=== PATIENT | male | born 1980 | race Two or more races ===

== ENCOUNTER 2016-10-26 21:07 | Emergency (ER) | payer SELFPAY ==
[2016-10-26] MEDS ORDERED: LIDOCAINE 2% VISCOUS SOLN 20 ML UDCUP PO ONE (22:09)
[2016-10-26] MEDS ORDERED: METOCLOPRAMIDE HCL ORAL SOLN 10 MG/10 ML UDCUP PO ONE (22:09)
[2016-10-26] MEDS ORDERED: MAG HYDROX/AL HYDROX/SIMETH SUSP 30 ML UDCUP PO ONE (22:09)
--- NOTE | 2016-10-26 22:13 | ER Document Report ---
ED GI/ - General Chief Complaint: Abdominal Pain Stated Complaint: SHORTNESS OF BREATH Time Seen by Provider: 10/26/16 22:02 Notes: The patient is a 36-year-old male, past medical history anxiety, hypertension, GERD, presents from home after he is feeling epigastric pain and belching episodes that is causing him to feel short of breath and like his tongue is tingling. He had an EGD performed by Dr. Owen about 4 months ago, which showed mild gastritis. He is currently taking omeprazole. Patient denies chest pain at rest, shortness of breath at rest, numbness, tingling, nausea, vomiting, diarrhea, constipation, back pain or urinary symptoms. TRAVEL OUTSIDE OF THE [place] IN LAST 30 DAYS: No - Related Data Allergies/Adverse Reactions: No Known Allergies Allergy (Verified 10/26/16 21:13) Home Medications: Current Home Medications Amlodipine Besylate/Benazepril [Amlodipine-Benazepril 10-40 mg] 1 cap PO DAILY 10/26/16 [History] Metoprolol Tartrate [Lopressor] 50 mg PO BID 10/26/16 [History] Omeprazole 20 mg PO BID 10/26/16 [History] Past Medical History - General Information source: Patient - Social History Smoking Status: Never Smoker Chew tobacco use (# tins/day): No Frequency of alcohol use: Occasional Drug Abuse: None Family History: Reviewed & Not Pertinent Patient has suicidal ideation: No Patient has homicidal ideation: No - Past Medical History Cardiac Medical History: Reports: Hx Hypertension Renal/ Medical History: Denies: Hx Peritoneal Dialysis GI Medical History: Reports: Hx Gastroesophageal Reflux Disease Psychiatric Medical History: Reports: Hx Anxiety Past Surgical History: Reports: Hx Cholecystectomy - Immunizations Hx Diphtheria, Pertussis, Tetanus Vaccination: No Review of Systems - Review of Systems Notes: REVIEW OF SYSTEMS: CONSTITUTIONAL: -fevers, -chills EENT: -eye pain, -difficulty swallowing, -nasal congestion CARDIOVASCULAR:-chest pain, -syncope. RESPIRATORY: -cough, +SOB GASTROINTESTINAL: +epigastric abdominal pain, - nausea, -vomiting, -diarrhea GENITOURINARY: -dysuria, -hematuria MUSCULOSKELETAL: -back pain, -neck pain SKIN: -rash or skin lesions. HEMATOLOGIC: -easy bruising or bleeding. LYMPHATIC: -swollen, enlarged glands. NEUROLOGICAL: -altered mental status or loss of consciousness, -headache, - neurologic symptoms PSYCHIATRIC: -anxiety, -depression. ALL OTHER SYSTEMS REVIEWED AND NEGATIVE. Physical Exam - Vital signs Vitals: Temp Pulse Resp BP Pulse Ox 98 F 73 20 172/105 H 98 10/26/16 21:13 10/26/16 21:13 10/26/16 21:13 10/26/16 21:13 10/26/16 21:13 - Notes Notes: PHYSICAL EXAMINATION: GENERAL: Well-appearing, well-nourished and in no acute distress. Appears anxious. HEAD: Atraumatic, normocephalic. EYES: Pupils equal round and reactive to light, extraocular movements intact, sclera anicteric, conjunctiva are normal. ENT: no tongue swelling, nares patent, oropharynx clear without exudates. Moist mucous membranes. NECK: Normal range of motion, supple without lymphadenopathy LUNGS: Breath sounds clear to auscultation bilaterally and equal. No wheezes rales or rhonchi. HEART: Regular rate and rhythm without murmurs ABDOMEN: Soft, mild epigastric tenderness, normoactive bowel sounds. No guarding, no rebound. No masses appreciated. EXTREMITIES: Normal range of motion, no pitting or edema. No cyanosis. NEUROLOGICAL: Cranial nerves grossly intact. Normal speech, normal gait. Normal sensory and motor exams. PSYCH: Anxious affect. SKIN: Warm, Dry, normal turgor, no rashes or lesions noted. Course - Re-evaluation Re-evalutation: Patient appears anxious, but well. His chest x-ray does not show any free air or any other acute findings. His abdominal pain is ongoing for several months and he is following with the GI doctor. He has had an EGD that shows some gastritis symptoms. After GI cocktail, patient is completely asymptomatic. Instructed him to have his blood pressure rechecked by his primary care physician to see if any of his blood pressure medications need to be adjusted. Given return precautions and he understands. Patient presents with multiple vague complaints that did not appear to be concerning for any acute life-threatening pathology. Vitals are within normal limits at triage and at time of discharge. Physical examination is unremarkable. Patient has tolerated oral intake without difficulty. Patient was not noted to be in distress at any point during their ER visit. At this time, based on the reassuring evaluation, I do not suspect an acute ND, pulmonary embolus, aortic dissection, acute intra-abdominal pathology, stroke, or sepsis. Will discharge with return precautions and follow-up recommendations. Verbal discharge instructions given a the bedside and opportunity for questions given. Medication warnings reviewed. Patient is in agreement with this plan and has verbalized understanding of return precautions and the need for primary care follow-up in the next 24-72 hours. - Vital Signs Vital signs: Temp Pulse Resp BP Pulse Ox 98.0 F 73 17 172/109 H 98 10/26/16 21:15 10/26/16 21:15 10/26/16 21:53 10/26/16 21:15 10/26/16 21:15 - Diagnostic Test Radiology reviewed: Image reviewed, Reports reviewed Radiology results interpreted by me: CXR: NAD Discharge - Discharge Clinical Impression: Chronic epigastric pain, Shortness of breath Condition: Stable Disposition: HOME, SELF-CARE Additional Instructions: Continue your omeprazole and begin Gas-X to help with your symptoms. Follow-up with your primary care physician to have your blood pressure rechecked and GI doctor to have your abdominal pain rechecked. SHORTNESS OF BREATH OR DYSPNEA: You were evaluated for shortness of breath, or dyspnea. Dyspnea has many causes, and some are more serious than others. Sometimes it's impossible to diagnose the cause of dyspnea with the tests that are available on an emergency basis. Based on our evaluation today, you do not need hospitalization now. We found no evidence of pneumonia, collapsed lung, blood clots in the lung, tumors , or heart failure. Causes of non-specific dyspnea can include asthma or bronchospasm, hyperventilation, emotional distress, heart disease, emphysema, fibrosis of the lung, and stiffness of the chest wall. In healthy individuals with a single episode, it's sometimes reasonable to do nothing but wait to see if the problem occurs again. Additional tests used to evaluate dyspnea can include cardiac stress testing, echocardiography, pulmonary function testing, CAT scan of the chest, bronchoscopy or pulmonary biopsy. Return if shortness of breath persists or worsens, or if you develop chest pain, fever, cough, confusion, or fainting. NORMAL EXAM AND WORKUP: At this time, your examination and workup show no significant abnormality. No significant abnormal physical findings were noted. All laboratory, EKG, and imaging (x-ray, CT scans, ultrasound) studies that were ordered show no significant abnormality. Although your examination and all studies that were ordered showed no significant abnormal finding, there are no examinations and no studies that are 100% accurate. There is always the possibility that some abnormality could exist and not be detected with physical examination or within the limits and capabilities of laboratory and other studies. You should return or follow up as you were instructed on your visit today for further evaluation if your symptoms do not resolve. FOLLOW-UP CARE: If you have been referred to a physician for follow-up care, call the physician s office for an appointment as you were instructed or within the next two days. If you experience worsening or a significant change in your symptoms, notify the physician immediately or return to the Emergency Department at any time for re-evaluation. Forms: Elevated Blood Pressure Referrals: MICHELLE OWEN MD [ACTIVE STAFF] - Follow up as needed
--- NOTE | 2016-10-26 22:36 | RADIOLOGY REPORT (SQ) ---
EXAM DESCRIPTION: CHEST PA/LAT COMPLETED DATE/TIME: 10/26/2016 10:22 pm REASON FOR STUDY: SOB COMPARISON: 05/08/2014 EXAM PARAMETERS: NUMBER OF VIEWS: two views TECHNIQUE: Digital Frontal and Lateral radiographic views of the chest acquired. RADIATION DOSE: NA LIMITATIONS: none FINDINGS: LUNGS AND PLEURA: No opacities, masses or pneumothorax. No pleural effusion. MEDIASTINUM AND HILAR STRUCTURES: No masses or contour abnormalities. HEART AND VASCULAR STRUCTURES: Heart normal size. No evidence for failure. BONES: No acute findings. HARDWARE: None in the chest. OTHER: No other significant finding. IMPRESSION: No acute findings. TECHNICAL DOCUMENTATION: JOB ID: [id number] [employer]- All Rights Reserved
[2016-10-26 22:58] VITALS: BP 155/93
== END 2016-10-26 22:59 | disposition home or self-care (01) ==
LOC: ER 21:07
DX: G89.29 Other chronic pain (principal); R10.13 Epigastric pain; R06.02 Shortness of breath; I10 Essential (primary) hypertension; Z90.49 Acquired absence of other specified parts of digestive tract
CPT/HCPCS: 99284; 71020; J3490